=== PATIENT | female | born 1980 | race Caucasian/White ===

== ENCOUNTER 2023-06-09 04:53 | Day surgery (SDC) | payer OTHER ==
[2023-06-07 18:03] VITALS: BMI 25.4
[~2023-06-09 04:53] MED LIST: BUPIVACAINE HCL/PF 0.5% (5MG/ML) 10 ML VIAL IJ ONE
[2023-06-09] MEDS ORDERED: BUPIVACAINE HCL/PF 0.5% (5MG/ML) 10 ML VIAL ONE (10:06)
[2023-06-09] MEDS ORDERED: KETOROLAC TROMETHAMINE 30 MG/1 ML VIAL ONE (10:21)
[2023-06-09] MEDS ORDERED: LIDOCAINE HCL/PF 2% SDV 5ML VIAL ONE (10:21)
[2023-06-09] MEDS ORDERED: ONDANSETRON 4 MG/2 ML VIAL ONE (10:21)
[2023-06-09] MEDS ORDERED: SODIUM CHLORIDE 0.9% P/F 10 ML VIAL IJ ONE ×2 (10:21→10:56)
[2023-06-09] MEDS ORDERED: ceFAZolin SODIUM 1 GM VIAL ONE (10:21)
[2023-06-09] MEDS ORDERED: DEXAMETHASONE SOD PHOSPHATE 4 MG/1 ML VIAL ONE (10:21)
[2023-06-09] MEDS ORDERED: MIDAZOLAM HCL 2 MG/2 ML SINGLE DOSE VIAL ONE (10:22)
[2023-06-09] MEDS ORDERED: PROPOFOL 40 ML ONE (10:22)
[2023-06-09] MEDS ORDERED: FENTANYL CITRATE/PF 50 MCG/ML VIAL ONE (10:22)
[2023-06-09] MEDS ORDERED: SUGAMMADEX SODIUM 200 MG/2 ML VIAL ONE (10:38)
[2023-06-09] MEDS ORDERED: BUPIVACAINE HCL/PF 0.5% (5MG/ML) 10 ML VIAL IJ ONE (10:45)
[2023-06-09] MEDS ORDERED: ACETAMINOPHEN INJECTION 100 ML IVPB ONE (10:50)
[2023-06-09] MEDS ORDERED: HYDROmorphone HCl 2 MG/ML VIAL ONE (10:51)
[2023-06-09] MEDS ORDERED: ONDANSETRON 4 MG/2 ML VIAL IVPUSH PRN (12:00)
[2023-06-09] MEDS ORDERED: LACTATED RINGERS SOLUTION 1,000 ML IV SCH (12:00)
[2023-06-09] MEDS ORDERED: oxyCODONE HCL 5 MG TABLET PO PRN (12:00)
[2023-06-09 13:26] VITALS: RESP 16
[2023-06-09 14:52] VITALS: BP 103/53; PULSE 71; TEMP 97.2
== END 2023-06-09 15:35 | disposition home or self-care (01) ==
LOC: JASU-SURG 04:53
PROVIDERS: ATTEND Student in an Organized Health Care Education/Training Program
PROC: 0UPD7HZ Removal of Contraceptive Device from Uterus and Cervix, Via Natural or Artificial Opening (ICD-10-PCS; 2023-06-09)
PROC: 0UB78ZZ Excision of Bilateral Fallopian Tubes, Via Natural or Artificial Opening Endoscopic (ICD-10-PCS; principal; 2023-06-09 10:00)
DX: Z30.2 Encounter for sterilization (principal)
CPT/HCPCS: 81025; 94760